=== PATIENT | female | born 1990 | race Caucasian/White ===

== ENCOUNTER → 2022-08-04 09:55 | Outpatient (BNVA) | payer MEDICAID, SELFPAY | PROVIDERS: PCP Registered Nurse; Referring Provider Registered Nurse; Visit Provider Internal Medicine Cardiovascular Disease | DX: R00.2 Palpitations (principal) | CPT/HCPCS: 93005; 99202 ==

== ENCOUNTER → 2022-08-17 10:51 | Outpatient (REF) | payer MEDICAID, SELFPAY ==
--- NOTE | 2022-08-17 10:54 | HM_ITS ---
Cardiac event monitor Indication: Palpitations Technique: Patient was hooked up to cardiac event monitor on 08/17/2022 for total duration of 30 days. Compliance rate was 86.2%. Quality of tracing was adequate. Findings: Baseline rhythm is predominantly sinus rhythm with heart rate varying between 60 and 100 beats per minute 85% of time. No significant sinus tachycardia sinus bradycardia noted. No significant pauses noted. Rare isolated PACs and PVCs noted. No prolonged arrhythmias such as SVT or ventricular tachycardia noted. Patient reported 3 events with irregular heartbeat or flutter that correlated with isolated PVCs. Patient reported 1 symptom of palpitations skipped heartbeat that correlated with PVCs. Patient recorded to other events without any reporting symptoms that correlated with sinus rhythm. Conclusion: 1. Baseline was normal sinus rhythm with no pauses 2. Rare PACs and PVCs noted 3. Patient reported symptoms of irregular heartbeat and/or skipped heartbeats correlated with isolated PVCs MTDD
--- NOTE | 2022-08-17 10:54 | CA_ITS ---
Transthoracic Echocardiogram Patient (Last, First, Middle): Beverly Shields, Gender: Female Date of : 1990 Age: 31 Procedure Date: 08/17/2022 Procedure Type: Transthoracic Echocardiogram Location: OP Height: 165.1 cm Weight: 81.65 kg BSA: 1.89 m2 Heart Rate: 66 bpm BP: 126 / 72 mmHg Mortgage Closing Clerk: HESHAM Referring MD: Alexander Gage MD Symptoms: R00.2 - Palpitations Study Quality: Adequate ECG Rhythm: Sinus Conclusions: - The left ventricular systolic function is normal. The calculated ejection fraction is 60% by biplane method. - No obvious valvular pathology seen on this study. Findings Left Ventricle Normal left ventricular cavity size. There is normal left ventricular wall thickness. The left ventricular systolic function is normal. The calculated ejection fraction is 60% by biplane method. There is no evidence of regional wall motion abnormalities. Diastolic function is normal for age. LV peak GLS -22.9%. Right Ventricle Normal right ventricular cavity size and systolic function. Atria Both atria are normal in size. Aortic Valve There is a normal trileaflet aortic valve. There is no aortic valve stenosis. There is no aortic valve regurgitation. Mitral Valve The mitral valve appears normal. There is trace mitral valve regurgitation. There is no mitral valve stenosis. Pulmonic Valve The pulmonic valve is likely normal. Tricuspid Valve Normal tricuspid valve structure. There is no tricuspid valve regurgitation. There is no evidence of pulmonary hypertension. Great Vessels The asc aorta is normal in size. Venous The inferior vena cava is normal in size and collapses greater than 50% with inspiration. Pericardium/Pleural There is a trivial pericardial effusion. Prior Study Comparison No prior study available for comparison. Recommendations, Care & Conclusions No obvious valvular pathology seen on this study. Measurements 2D Linear Measurements IVSd: 0.64 0.6-0.9/0.6-1.0 cm LVIDd: 5.02 3.9-5.3/4.2-5.9 cm LVIDd Index: 2.66 2.4-3.2/2.2-3.1 cm/m2 LVIDs: 3.17 2.0-3.6 cm LVPWd: 0.81 0.7-1.1 cm LA Diam: 3.10 2.7-3.8/3.0-4.0 cm LAIDs Index: 1.64 1.5-2.3 cm/m2 LV Mass: 149.98 67-162/88-224 g LV Mass Index: 79.35 43-95/49-115 g/m2 LVOT Diam: 2.30 3.0+(-)1.3 cm 2D Systolic Function EF 4C: 58.40 >55% EF 2C: 67.10 >55% EF BiP: 60.00 >55% Mitral Valve MV Pk E: 0.90 MV PK A: 0.39 MV Decel Time: 190.00 E/A: 2.30 E'Lateral: 14.10 E'Medial: 10.30 E/E' Med: 8.80 E/E' Lat: 6.40 PHT: 56.00 MVA PHT: 3.93 Decel Tyrrell: 4.75 Aortic Valve AoV Pk Lazarus: 1.23 AoV Pk Grad: 6.00 SYMONE: 3.06 LVOT LVOT Pk Lazarus: 0.91 LVOT Mn Lazarus: 0.58 LVOT VTI: 0.20 LVOT Pk Grad: 3.00 LVOT Mn Grad: 2.00 LVOT Diam: 2.30 LVOT Area: 4.15 Diastolic Function MV Pk E: 0.90 MV Pk A: 0.39 E/A: 2.30 E'Medial: 10.30 E/E' Med: 8.80 E' Laterial: 14.10 E/E' Lat: 6.40 Right Ventricle TAPSE (mm): 31.30 TVS' Lazarus: 16.60 Tricuspid Valve TR Pk Lazarus: 1.66 TR Pk Grad: 11.00 RA Press: 3.00 RVSP: 14.00 Great Vessels Aorta Sinus of Valsalva: 3.00 2.0-3.5 cm Ao Asc: 2.60 2.1-3.4 cm Ao Arch: 2.50 Ao Desc: 1.40 Pulmonary Veins Pulm Vein S/D 1.30 Pulmonary Valve PV Pk Lazarus: 0.90 Peak PV Grad: 3.00 Updated in Other Vendor System with Status of Final Genaro Mcgovern MD electronically signed on 08/19/2022 11:37:26 AM with status of Final
== END ==
LOC: HO.CARD 10:51
PROVIDERS: PCP Registered Nurse; Visit Provider Internal Medicine Cardiovascular Disease
DX: R00.2 Palpitations (principal)
CPT/HCPCS: 93270; 93306; 93356

== ENCOUNTER 2022-10-21 13:12 | Outpatient (AMB) | payer MEDICAID, SELFPAY ==
--- NOTE | 2022-10-21 13:16 | MHC.OFFVIS ---
Intake Vital Signs 10/21/22 13:18 Height 5 ft 5 in Weight 200 lb 9.93 oz BMI 33.4 BP 110/72 Blood Pressure Location Lt brachial Position Sitting Pulse 72 Intake Visit Reasons: 2 month f/u S/P echo/30 day Intake Note: 2 month follow-up after echo and 30 monitor Lens Examiner Required: No Allergies No Known Allergies Allergy (Unverified 12/13/19 18:42) Medication List - Last Reconciled 10/21/22 by Alexander Gage MD amitriptyline 20 mg PO DAILY ibuprofen 800 mg PO Q8H PRN levonorgestrel-ethinyl estrad 0.1-20 mg-mcg (Vienva) 0 tabs PO sertraline 25 mg PO DAILY HPI HPI Comments History of Present Illness Details Beverly comes for follow-up. When she was wearing the event monitor she was having symptoms of irregular heartbeat and skipped heartbeat that correlated with isolated PVCs. Echocardiogram shows normal structure of the heart. She has not had any significant palpitations or prolonged fast heart rate. She is happy about it. [facility] Family History Father No problems noted. Sister POTS (postural orthostatic tachycardia syndrome) Social History Patient Tobacco Use Status: Never used Tobacco Review of Systems Const Denies chills, Denies fatigue, Denies fever(s), Denies frequent falls, Denies weakness, Denies weight gain and Denies weight loss ENT Denies dizziness Card Denies chest pain, Denies leg edema, Denies lightheadedness, Denies palpitations, Denies dyspnea, Denies dyspnea on exertion, Denies orthopnea and Denies other (loss of consciousness) Resp Denies cough, Denies dyspnea and Denies dyspnea on exertion GI Denies hematochezia and Denies change in stool character Musc Denies abnormal gait, Denies muscle weakness, Denies numbness, Denies radiating pain into limb and Denies tingling Neuro Denies Abnormal speech present, Denies abnormal gait, Denies dizziness, Denies frequent falls, Denies numbness, Denies tingling and Denies weakness Endo Denies fatigue and Denies palpitations Physical Exam Vital Signs: Last Vital Signs Pulse 72 10/21/22 13:18 BP 110/72 10/21/22 13:18 BMI result Body Mass Index 33.4 Const General: cooperative, comfortable, no acute distress, alert, awake and Physically active Nutritional Appearance: overweight Limitations: no limitations Neck Neck: Yes trachea midline, Yes supple and Yes no JVD Resp Effort & Inspection: normal respiratory effort Auscultation: clear to auscultation bilaterally Cardio Jugular venous distension: no JVD Palpation: normal PMI Rate: regular rate Rhythm: regular rhythm Heart sounds: S1 normal heart sound present, S2 normal heart sound present, no click, no gallops, no murmurs and no rubs Neuro Speech: No Abnormal speech present Extrem General: Yes no clubbing, cyanosis or edema Assessment & Plan Assessment & Plan (1) PVC (premature ventricular contraction): Code(s): I49.3 - Ventricular premature depolarization Plan: Symptomatic PVCs, isolated with rare occurrence. Normal structure of the heart. This was discussed with the patient. Benign nature of isolated rare PVCs were discussed with her. Her symptoms have currently resolved. However she also says she had symptoms of rapid heart rate. Unclear as to if these represent SVT or sinus tachycardia. Discussed with her about obtaining EKG sensors that para with her phone to diagnose if she has rapid heart rate with any other different fall arrhythmias. Currently I do not suggest any pharmacotherapy. Advised stress mitigation strategies. Avoidance of stimulants was discussed. Will follow up in the clinic if need be. Thank you for allowing me to partake in her care Coding Level of Care Code Est Pt Level 3 (86665) Diagnoses PVC (premature ventricular contraction) I49.3
[2022-10-21 13:18] VITALS: BP 110/72; PULSE 72; BMI 33.4
== END 2022-10-21 13:44 | disposition home or self-care (01) ==
PROVIDERS: Visit Provider Internal Medicine Cardiovascular Disease
DX: I49.3 Ventricular premature depolarization (principal)
CPT/HCPCS: 99213

== ENCOUNTER → 2022-10-21 13:12 | Outpatient (BNVA) | payer MEDICAID, SELFPAY | PROVIDERS: Visit Provider Internal Medicine Cardiovascular Disease | DX: I49.3 Ventricular premature depolarization (principal) | CPT/HCPCS: 99212 ==

== ENCOUNTER 2024-09-06 14:48 | Outpatient (REF) | payer BC, SELFPAY ==
[2024-09-06 16:15] LABS: MANUAL DIFF FLAG NO
[2024-09-06 16:20] LABS: Basophils Percent Auto 0.2 % (0-2); Eosinophils Absolute Auto 0.1 X10*3/uL (0.0-0.4); Eosinophils Percent Auto 0.9 % (0-4); Hematocrit 33.9 % (37.0-47.0); Hemoglobin 11.3 g/dl (12.0-16.0); Imm Gran Abs Auto 0.01 X10*3/uL (0.00-0.03); Imm Gran Pct Auto 0.2 % (0.0-0.4); Lymphocytes Absolute Auto 1.9 X10*3/uL (1.2-4.9); Lymphocytes Percent Auto 36.8 % (20-40); Mean Corpuscular HGB Conc 33.3 g/dl (31.0-35.0); Mean Platelet Volume 10.3 fL (9.4-12.3); Monocytes Absolute Auto 0.3 X10*3/uL (0.1-1.2); Monocytes Percent Auto 5.3 % (2-11); Neutrophils Percent Auto 56.6 % (45-73); Platelet Count 148 X10*3/uL (160-400); Red Blood Count 3.53 X10*6/uL (4.20-5.50); Red Cell Distribution Width 12.1 % (11.0-16.0); White Blood Count 5.3 X10*3/uL (4.8-10.8)
[2024-09-06 16:34] LABS: Alanine Aminotransferase 11 U/L (0-31); Albumin Level 4.6 g/dL (3.5-5.0); Alkaline Phosphatase 66 U/L (39-117); Anion Gap 13 (12-20); Aspartate Amino Transferase 19 U/L (5-31); Bilirubin Total 0.2 mg/dL (0.0-1.0); Blood Urea Nitrogen 10 mg/dL (9-16); Calcium 8.9 mg/dL (8.4-10.2); Carbon Dioxide 24 mmol/L (22-29); Chloride 106 mmol/L (96-108); Estimated Glomerular Filt Rate > 60; Glucose Random 120 mg/dL (60-115); Potassium 3.7 mmol/L (3.3-5.1); Sodium 139 mmol/L (135-145); Total Protein 7.4 g/dL (6.5-8.0)
[2024-09-06 16:52] LABS: TSH reflex Free T4 1.99 uIU/mL (0.32-4.0); Vitamin D 25-OH Total 27.2 ng/mL (>30)
[2024-09-06 17:08] LABS: Folate 9.3 ng/mL (> or = 4.0); Vitamin B12 < 148 pg/mL (200-900)
--- OUTSIDE RECORDS SUMMARY | 2024-09-06 17:28 | XMS_ITS | Clinical Summary ---
Author Organization [employer] Address [address] [facility] [address] [place] [address] Care Team Providers Care Product Consultant Name Role Phone Renetta Church [facility] Primary Care Provider [phone] Allergies No known active allergies Medications Vienva 0.1-20 MG-MCG tablet Take 1 tablet by mouth in the morning. as directed 01/31/20 22 Active podofilox (Condylox) 0.5 % external solution podofilox 0.5 % topical solution APPLY EXTERNALLY TO THE AFFECTED AREA TWICE DAILY FOR 3 DAYS THEN STOP FOR 4 DAYS. REPEAT 7 DAY CYCLE UNTIL NO VISIBLE WART TISSUE/. MAX OF Active cetirizine (ZyrTEC) 10 MG tabletIndication s:Seasonal allergies Take 1 tablet (10 mg) by mouth in the morning. 30 tablet 2 08/05/19 23 Active fluticasone (Flonase) 50 MCG/ACT nasal sprayIndications :Seasonal allergies Administer 1-2 sprays into each nostril in the morning. Shake gently. Before first use, prime pump. After use, clean tip and replace cap. 16 g 2 08/05/19 23 Active FLUoxetine (PROzac) 10 MG capsule Take 10 mg by mouth Once per day. Active psyllium (Metamucil Smooth Texture) 58.6 % powderIndication s:Constipation, unspecified constipation type Take 5.12 g (3 g of fiber) by mouth 2 times daily. 283 g 11 09/01/19 25 026 Active cyclobenzaprine (Flexeril) 5 MG tabletIndication s:Bruxism Take 1 tablet (5 mg) by mouth if needed in the morning, at noon, and at bedtime for muscle spasms. 30 tablet 2 12/26/19 24 025 Discontinued amitriptyline (Elavil) 10 MG tabletIndication s:Daily headache TAKE 2 TABLETS(20 MG) BY MOUTH AT BEDTIME 60 tablet 11 07/26/19 25 025 Discontinued Active Problems Problem Noted Date Diagnosed Date Anxiety 06/17/2023 Assessment & Plan (06/20/2023 11:12 AM EDT): On review of chart I saw her PCP note explain the medication changes that where done and that the next step was to add Buspar I will do this and schedule her with PCP for follow up Bruxism 06/17/2023 Assessment & Plan (06/20/2023 11:14 AM EDT): I will also add a muscle relaxer to see if this will help her, extensive counseling about side effect was done including somnolence I explain she can not drive or do activities that requires her concentration while on this medication Palpitations 06/01/2022 Overview (08/04/2022): ?? EKG WNL ?? TSH/CBC pending Assessment & Plan (08/04/2022 10:18 PM EDT): ?? Follow up as scheduled with cardiology ?? ED precautions reviewed Chronic tension-type headache, not intractable 0 06/01/2022 Overview (12/27/2023): Daily frontal headaches since middle school. No aura. No n/v/dizziness. No light/sound sensitivity. Sx improvement with amitriptyline Assessment & Plan (08/04/2022 10:21 PM EDT): Suspect possible underlying allergy component ?? Continue amitriptyline 20mg q. Night ?? Trial daily cetirizine 10mg ?? Trial daily flonase Anxiety and depression 04/20/2022 Overview (12/27/2023): Established with therapist Denies SI or thoughts of self harm Assessment & Plan (08/04/2022 10:14 PM EDT): ?? STOP sertraline (bruxism) ?? START escitalopram 10mg once daily ?? Continue to follow with therapist ?? If bruxism reoccurs will consider adding buspar at follow up Assessment & Plan (06/01/2022 9:41 AM EST): ?? Continue current regimen Healthcare maintenance 04/20/2022 Overview (08/04/2022): [facility]; [facility]x [facility]; colposcopy; last results 1 year ago. Immunizations: Declines flu shot, needs COVID booster. Otherwise up to date Encounters Date Type Department Care Team Description 08/31/2024 2:00 PM EDT Office Visit [facility] [address] [place] [phone] Renetta Church FNP Fatigue, unspecified type (Primary Dx); Constipation, unspecified constipation type; Excessive daytime sleepiness 08/31/2024 Travel 08/30/[address] [facility] [address] [place] [phone] Renetta Church FNP Chart prep 08/30/[address] [facility] [address] [place] [address] Renetta Church FNP Nurse Triage 07/24/[address] [facility] [address] [place] [address] Renetta Church FNP Daily headache from Last 3 Months Immunizations Immunization Administration Dates Next Due Moderna Covid-19 Vaccine 6+ Bivalent 02/13/2022 Pfizer Covid-19 Vaccine 12+ 05/30/2020 Tdap 04/28/2017 Family History Medical History Relation Name Comments postural orthostatic tachycardia Sister Relation Name Status Comments Sister Social History Tobacco Use Types Packs/Day Years Used Date Smoking Tobacco: Never Passive Smoke Exposure: Never Smokeless Tobacco: Never Tobacco Cessation:Counseling Given: Not Answered Alcohol Use Standard Drinks/Week Comments Never 0 (1 standard drink = 0.6 oz pur e alcohol) Depression Answer Date Recorded Patient Health Questionnaire-9 Score 0 12/26/2023 Patient Health Questionnaire-9 Score 0 12/26/2023 Last PHQ-9: Questionnaire Data Not on file 0 12/26/2023 Housing Stability Answer Date Recorded What is your housing situation today? I have romero suazo 12/26/[address] you li ve. Do you have problems with any of the following? None of the above 12/26/2023 Food Insecurity Answer Date Recorded Within the past 12 months, y ou worried that your food would run out before you got money to buy more: Never True 12/26/2023 Within the past 12 months,th e food you bought just didn't last and you didn't have enough money to get more: Never True Transportation Answer Date Recorded In the past 12 months, has l ack of transportation kept you from medical appts, meetings, work or from getting things needed for daily living? No 12/26/2023 Utilities Answer Date Recorded In the past 12 months, has t he electric, gas, oil or water company threatened to shut off services in your home? No 12/26/2023 Depression Answer Date Recorded Patient Health Questionnaire-2 Score 0 12/26/2023 Internet Access Answer Date Recorded Internet Access Q1 Yes 12/26/2023 Internet Access Q2 Not on file 12/26/2023 Comments Unknown Sex and Gender Information Value Date Recorded Sex Assigned at Female 01/25/2022 10:38 AM EDT Legal Sex Female 10:38 AM EDT Gender Identity Female 01/25/2022 10:38 AM EDT Sexual Orientation Straight 01/25/2022 10 :38 AM EDT Last Filed Vital Signs Vital Sign Reading Time Taken Comments Blood Pressure 112/72 08/31/2024 2:00 PM EDT Pulse 78 08/31/2024 2:00 PM EDT Temperature 36.9 ??C (98.5 ??F) 08/31/2024 2:00 PM ED T Respiratory Rate 18 08/31/2024 2:00 PM EDT Oxygen Saturation 99% 12/26/2023 2:12 PM EDT Inhaled Oxygen Concentration - - Weight 83.6 kg (184 lb 6.4 oz) 08/31/2024 2:00 P M EDT Height 165.1 cm (5' 5 ) 08/31/2024 2:00 PM EDT Body Mass Index 30.69 08/31/2024 2:00 PM EDT Plan of Treatment Health Maintenance Due Date Last Done Comments Disability Screening 1992 Alcohol/Substance Use Screening 2004 Family Planning (PISQ) 11/23/2007 Pap Smear 2013 Cervical Cancer Screening 2022 HPV/Cotest 2022 COVID-19 Vaccine (3 - 2023-2 5 season) 2023 02/13/2022, 05/30/2020 Influenza Vaccine (Season Ended) 2024 Depression Screening 12/25/2024 12/26/2023, 12/26/2023 SDOH Screening 12/25/2024 12/26/2023 Tobacco Screening 08/31/2025 08/31/2024 DTaP/Tdap/Td Vaccines (2 - T d or Tdap) 04/28/2027 04/28/2017 Zoster Vaccines (1 of 2) 2042 RSV Patients and Patients Aged 60 years or older (1 - 1-dose 75+ series) 11/23/2067 HIV Screening Completed 04/20/2022 Hepatitis C Screening Completed 04/20/2022 HIB Vaccines Aged Out No longer eligi ble based on patient's age to complete this topic HPV Vaccines Aged Out No longer eligi ble based on patient's age to complete this topic Hepatitis A Vaccines Aged Out No long er eligible based on patient's age to complete this topic Hepatitis B Vaccines Discontinued IPV Vaccines Aged Out No longer eligi ble based on patient's age to complete this topic Meningococcal B Vaccine Aged Out No l onger eligible based on patient's age to complete this topic Meningococcal Vaccine Aged Out No maria isabel isai eligible based on patient's age to complete this topic Pneumococcal Vaccine: Pediatrics (0 to 5 Years) and At-Risk Patients (6 to 49) Years) Aged Out No longer eligible based on patient's age to complete this topic RSV under 20 months Aged Out No longe r eligible based on patient's age to complete this topic Rotavirus Vaccines Aged Out No longer eligible based on patient's age to complete this topic Procedures Procedure Name Priority Date/Time Associated Diagnosis Comments VITAMIN B12/FOLATE, SERUM PANEL Routine 09/06/2024 2:52 PM EDT Fatigue, unspecified type VITAMIN D,25-OH,TOTAL,IA Routine 09/06/2024 2:52 PM EDT Fatigue, unspecified type TSH W/REFLEX TO FT4 Routine 09/06/2024 2 :52 PM EDT Fatigue, unspecified type CBC WITH AUTO DIFFERENTIAL Routine 09/06/2024 2:52 PM EDT Fatigue, unspecified type COMPREHENSIVE METABOLIC PANEL Routine 09/06/2024 2:52 PM EDT Fatigue, unspecified type HEPATITIS C AB W/REFL TO HCV RNA, QN, PCR Routine 04/20/2022 9:48 AM EST Healthcare maintenance HIV 1/2 ANTIGEN/ANTIBODY, FOURTH GENERATION W/RFL Routine 04/20/2022 9:48 AM EST Healthcare maintenance from Last 3 Months or Most Recently Relevant to Health Maintenance Results * (ABNORMAL) Vitamin D, 25-Hydroxy, Total, Immunoassay (09/06/2024 2:52 PM EDT) Vitamin D 25-OH Total 27.2(L) >30 ng/mL [facility] Comment: Health Based Reference Values*< 20 ??ng/mL ??[id number] ng/mL ??Insufficient> 30 ??ng/mL ??Sufficient*Marissa LYNN. N Engl J Med. 2007;357:266-280There is no well-established upper level of normal vitamin Dlevels. Some laboratories use 50 ng/mL as an upper limit ofnormal. However, toxicity is patient-dependent and may occurat any level. Careful correlation with the patient'spresentation is necessary and, if there is concern forvitamin D toxicity, treatment should be consideredirrespective of the serum level.Care must be taken in interpreting Vitamin D results fromdifferent laboratories and methodologies. ??Published datademonstrated that results from patients undergoinghemodialysis may show a negative bias when tested withvarious automated 25-OH vitamin D assays when compared toLC- MS/MS.When testing samples from patients whose predominant form ofVitamin D is Vitamin D2, such as patients receiving VitaminD2 supplementation, results that are subtherapeutic shouldbe confirmed with another method such as LC-MS/MS. Blood Venous blood specimen / Unknown 09/06/2024 2:52 PM EDT 09/06/2024 4:08 PM EDT [facility] LAB BLOOD ORDERABLES Final Re sult Performing Organization Address [facility] Co de Phone Number [facility] [address] [place] [phone] * (ABNORMAL) Vitamin B12/Folate, Serum Panel (09/06/2024 2:52 PM EDT) Vitamin B12 <148(L) 200 - 900 pg/mL [facility] Comment:NORMAL 200-900 PG/ML INDETERMINATE 160-199 PG/ML DEFICIENT < 160 PG/ML Folate 9.3 > or = 4.0 ng/mL [facility] Comment:Reference Values:> o r = 4.0 ng/mL< 4.0 ng/mL suggests folate deficiency Methotrexate, aminopterin and folinic acid(leucovorin) are chemotherapeutic agents whose molecularstructures are similar to folate; therefore, the Architectfolate assay cannot be used for patients using these drugs. Blood Venous blood specimen / Unknown 09/06/2024 2:52 PM EDT 09/06/2024 4:08 PM EDT [facility] LAB BLOOD ORDERABLES Final Re sult Performing Organization Address [facility] Co de Phone Number [facility] [address] [place] [phone] * TSH W/Reflex to FT4 (09/06/2024 2:52 PM EDT) TSH reflex Free T4 1.99 0.32 - 4.0 uIU/mL [facility] Blood Venous blood specimen / Unknown 09/06/2024 2:52 PM EDT 09/06/2024 4:08 PM EDT [facility] LAB BLOOD ORDERABLES Final Re sult [facility] [address] [place] [phone] * (ABNORMAL) CBC auto differential (09/06/2024 2:52 PM EDT) White Blood Count 5.3 4.8 - 10.8 X10*3/uL [facility] Red Blood Count 3.53(L) 4.20 - 5.50 X10*6/uL [facility] Hemoglobin 11.3(L) 12.0 - 16.0 g/dl [facility] Hematocrit 33.9(L) 37.0 - 47.0 % [facility] Mean Corpuscular Volume 96.0 80.0 - 98.0 fL [facility] Mean Corpuscular Hemoglobin 32.0 27.0 - 33.0 pg [facility] Mean Corpuscular HGB Conc 33.3 31.0 - 35.0 g/dl [facility] Red Cell Distribution Width 12.1 11.0 - 16.0 % [facility] Platelet Count 148(L) 160 - 400 X10*3/uL [facility] Mean Platelet Volume 10.3 9.4 - 12.3 fL [facility] Neutrophils Percent Auto 56.6 45 - 73 % [facility] Imm Gran Pct Auto 0.2 0.0 - 0.4 % [facility] Lymphocytes Percent Auto 36.8 20 - 40 % [facility] Monocytes Percent Auto 5.3 2 - 11 % [facility] Eosinophils Percent Auto 0.9 0 - 4 % [facility] Basophils Percent Auto 0.2 0 - 2 % [facility] NRBC Pct Auto 0.0 0.0 - 0.2 /100WBC [facility] Neutrophils Absolute Auto 3.0 2.0 - 8.3 x10*3/uL [facility] Imm Gran Abs Auto 0.01 0.00 - 0.03 X10*3/uL [facility] Lymphocytes Absolute Auto 1.9 1.2 - 4.9 X10*3/uL [facility] Monocytes Absolute Auto 0.3 0.1 - 1.2 X10*3/uL [facility] Eosinophils Absolute Auto 0.1 0.0 - 0.4 X10*3/uL [facility] Basophils Absolute Auto 0.0 0.0 - 0.2 X10*3/uL [facility] NRBC Abs Auto 0.000 0.0 - 0.012 X10*3/uL [facility] Blood Venous blood specimen / Unknown 09/06/2024 2:52 PM EDT 09/06/2024 4:08 PM EDT [facility] LAB BLOOD ORDERABLES Final Re sult [facility] [address] [place] [phone] * (ABNORMAL) Comprehensive Metabolic Panel (09/06/2024 2:52 PM EDT) Sodium 139 135 - 145 mmol/L [facility] Potassium 3.7 3.3 - 5.1 mmol/L [facility] Chloride 106 96 - 108 mmol/L [facility] Carbon Dioxide 24 22 - 29 mmol/L [facility] Anion Gap 13 12 - 20 [facility] Urea Nitrogen (BUN) 10 9 - 16 mg/dL [facility] Creatinine, Serum 0.65 0.5 - 1.4 mg/dL [facility] Estimated Glomerular Filt Rate >60 [facility] Comment:Chronic Kidney Disea se: Estimated GFR < 60 mL/min/1.70k9Inkdps Kidney Disease: Estimated GFR < 15 mL/min/1.73m2 Glucose 120(H) 60 - 115 mg/dL [facility] Calcium 8.9 8.4 - 10.2 mg/dL [facility] Bilirubin, Total 0.2 0.0 - 1.0 mg/dL [facility] Aspartate Amino Transferase 19 5 - 31 U/L [facility] Alanine Aminotransferase 11 0 - 31 U/L [facility] Total Protein 7.4 6.5 - 8.0 g/dL [facility] Albumin Level 4.6 3.5 - 5.0 g/dL [facility] Alkaline Phosphatase 66 39 - 117 U/L [facility] Blood Venous blood specimen / Unknown 09/06/2024 2:52 PM EDT 09/06/2024 4:08 PM EDT [facility] LAB BLOOD ORDERABLES Final Re sult Performing Organization Address [facility]/ZIP Co de Phone Number [facility] [address] [place] [phone] * Hepatitis C Antibody with Reflex to HCV, RNA, Quantitative, Real-Time PCR (04/20/2022 9:48 AM EST) Hepatitis C Antibody NON-REACT ERIKA NON-REACT ERIKA [facility] [place] [facility] Index 0.06 <1.00 [facility] [place] [facility] Comment: HCV antibody was non-reactive. There is no laboratory evidence of HCV infection. In most cases, no further action is required. However, if recent HCV exposure is suspected, a test for HCV RNA (test code 49051) is suggested. For additional information please refer to http://education.[employer]/faq/VAU86a3 (This link is being provided for informational/ educational purposes only.) Blood Venous blood specimen / Unknown 04/20/2022 9:48 AM EST 04/20/2022 9:48 AM EST Narrative [facility] - 04/21/2022 11:45 PM EST FASTING:NO FASTING: NO [facility] LAB BLOOD ORDERABLES Final Re sult [facility] [address] [place] [address], [facility], [place] [phone] [facility] [place] [facility] [address] [facility], ([address]) [place] [phone] * HIV-1/2 Antigen and Antibodies, Fourth Generation, with Reflexes (04/20/2022 9:48 AM EST) HIV Antigen/Antibody, 4th Generation NON-REAC TIVE NON-REAC TIVE [facility] [place] [facility] Comment: HIV-1 antigen and HIV-1/HIV-2 antibodies were not detected. There is no laboratory evidence of HIV infection. PLEASE NOTE: This information has been disclosed to you from records whose confidentiality may be protected by state law. ??If your state requires such protection, then the state law prohibits you from making any further disclosure of the information without the specific written consent of the person to whom it pertains, or as otherwise permitted by law. A general authorization for the release of medical or other information is NOT sufficient for this purpose. ?? For additional information please refer to http://education.[employer]/faq/QDI799 (This link is being provided for informational/ educational purposes only.) The performance of this assay has not been clinically validated in patients less than 2 years old. Blood Venous blood specimen / Unknown 04/20/2022 9:48 AM EST 04/20/2022 9:48 AM EST Narrative [facility] - 04/21/2022 11:45 PM EST FASTING:NO FASTING: NO [facility] LAB BLOOD ORDERABLES Final Re sult [facility] [address], [place] [phone] [facility] [place] [facility] [address] [facility], ([address]) [place] [phone] from Last 3 Months or Most Recently Relevant to Health Maintenance Insurance [facility] H[employer] Care Teams Product Consultant Relationship Specialty Start Date End Date Renetta Church FNP [address] [place] [phone] PCP - General Family Medicine 04/15/22
== END 2024-09-06 14:49 | disposition home or self-care (01) ==
LOC: HO.HHCL 14:48
PROVIDERS: Visit Provider Registered Nurse
DX: R53.83 Other fatigue (principal)
CPT/HCPCS: 36415; 80053; 82306; 82607; 82746; 84443; 85025

== ENCOUNTER 2024-09-10 15:11 | Outpatient (REF) | payer BC, SELFPAY ==
[2024-09-10 16:23] LABS: Retic HGB Equivalent 34.9 pg (30.0-35.0); Reticulocyte Percent 1.9 % (0.5-1.8); Reticulocytes Absolute 0.062 X10*6/uL (0.026-0.095)
[2024-09-10 16:55] LABS: Ferritin 18 ng/mL (10-122)
[2024-09-12 22:04] LABS: Intrinsic Factor Antibodies Negative (Negative)
== END 2024-09-10 15:12 | disposition home or self-care (01) ==
LOC: HO.HHCL 15:11
PROVIDERS: Visit Provider Registered Nurse
DX: E53.8 Deficiency of other specified B group vitamins (principal)
CPT/HCPCS: 36415; 82728; 85045; 86340

== ENCOUNTER 2025-01-29 06:15 | Outpatient (REF) | payer BC, SELFPAY ==
--- OUTSIDE RECORDS SUMMARY | 2025-01-29 06:20 | XMS_ITS | Clinical Summary ---
Author Organization [employer] Address [address] [facility] [address] [place] [address] Care Team Providers Care Broadcast Program Director Name Role Phone Renetta Church [facility] Primary Care Provider [phone] Allergies No known active allergies Medications Vienva [...] cap. 16 g 2 08/05/19 23 Active psyllium (Metamucil Smooth Texture) 58.6 % powderIndication s:Constipation, unspecified constipation type Take 5.12 g (3 g of fiber) by mouth 2 times daily. 283 g 09/01/19 25 026 Active cyanocobalamin (Vitamin B-12) 1000 MCG tabletIndication s:B12 deficiency Take 1 tablet (1,000 mcg) by mouth Once per day. 30 tablet 09/08/19 25 026 Active ferrous gluconate (Fergon) 324 (38 Fe) MG tablet Take 1 tablet (324 mg) by mouth with breakfast. 90 tablet 3 09/20/19 25 026 Active cholecalciferol VITAMIN D (Vitamin D-3) 50 MCG (1999 UT) capsuleIndicatio ns:Vitamin D deficiency TAKE 1 CAPSULE BY MOUTH EVERY DAY 30 capsule 3 01/17/20 25 Active lisdexamfetamine (Vyvanse) 30 MG capsule Take 30 mg by mouth Once per day. 05/07/19 25 Active FLUoxetine (PROzac) 20 MG capsuleIndicatio ns:Anxiety and depression Take 1 capsule (20 mg) by mouth Once per day. 30 capsule 11 01/22/20 25 026 Active FLUoxetine (PROzac) 10 MG capsule Take 10 mg by mouth Once per day. 025 Discontinued cholecalciferol (Vitamin D-3) 50 MCG (1999 UT) capsuleIndicatio ns:Vitamin D deficiency Take 1 capsule (50 mcg) by mouth Once per day. 30 capsule 3 09/08/19 25 025 Discontinued FLUoxetine (PROzac) 10 MG capsule Take 10 mg by mouth. 08/17/19 25 025 Discontinued Active Problems Problem Noted Date Diagnosed Date SVT (supraventricular tachycardia) 09/07/2024 Anxiety 06/17/2023 Assessment & Plan (06/20/2023 11:12 [...] on this medication Palpitations 06/01/2022 Overview (08/04/2022): EKG WNL TSH/CBC pending Assessment & Plan (08/04/2022 10:18 PM EDT): Follow up as scheduled with cardiology ED precautions reviewed Chronic tension-type headache, not intractable 0 06/01/2022 Overview (12/27/2023): Daily frontal headaches since middle school. No aura. No n/v/dizziness. No light/sound sensitivity. Sx improvement with amitriptyline Assessment & Plan (08/04/2022 10:21 PM EDT): Suspect possible underlying allergy component Continue amitriptyline 20mg q. Night Trial daily cetirizine 10mg Trial daily flonase Anxiety and depression 04/20/2022 Overview (12/27/2023): Established with therapist Denies SI or thoughts of self harm Assessment & Plan (08/04/2022 10:14 PM EDT): STOP sertraline (bruxism) START escitalopram 10mg once daily Continue to follow with therapist If bruxism reoccurs will consider adding buspar at follow up Assessment & Plan (06/01/2022 9:41 AM EST): Continue current regimen Healthcare maintenance 04/20/2022 Overview (08/04/2022): [facility]x [facility] abnormal [facility]; colposcopy; last results 1 year ago. Immunizations: Declines flu shot, needs COVID booster. Otherwise up to date Encounters Date Type Department Care Team Description 01/21/2025 2:00 PM EDT Office Visit [facility] [address] [place] [id number] [facility] Healthcare maintenance (Primary Dx); Excessive daytime sleepiness; Anxiety and depression; Attention deficit hyperactivity disorder (ADHD), predominantly inattentive type; Mixed hyperlipidemia; B12 deficiency; Anemia, unspecified type; SVT (supraventricular tachycardia) (CMS/HCC); Class 1 obesity due to excess calories without serious comorbidity with body mass index (BMI) of 31.0 to 31.9 in adult; Dietary counseling; Exercise counseling 01/21/2025 Travel 01/18/2025 Telephone [facility] [address] [place] [phone] [place]onRenetta begum FNP chart prep 01/16/2025 Refill [facility] [address] [place], [place] [phone] Renetta Church FNP Vitamin D deficiency 01/14/2025 Patient Outreach [facility] [address] [place], [place] [phone] LynnetteRenetta begum FNP Pre-visit Planning (SDOH negative. Tobacco screening negative. ) 11/13/2024 Telephone [facility] [address] [place], [place] [phone] FultonRenetta FNP oct recall from Last 3 Months Immunizations Immunization Administration [...] Answer Date Recorded Patient Health Questionnaire-9 Score 6 01/21/2025 Patient Health Questionnaire-9 Score 6 01/21/2025 Last PHQ-9: Questionnaire Data Not on file 1 Housing Stability Answer Date Recorded What is your housing situation today? I have romero suazo 01/14/[address] you li ve. Do you have problems with any of the following? None of the above 01/14/2025 Food Insecurity Answer Date Recorded Within the past 12 months, y ou worried that your food would run out before you got money to buy more: Never True 01/14/2025 Within the past 12 months,th e food you bought just didn't last and you didn't have enough money to get more: Never True Transportation Answer Date Recorded In the past 12 months, has l ack of transportation kept you from medical appts, meetings, work or from getting things needed for daily living? No 01/14/2025 Utilities Answer Date Recorded In the past 12 months, has t he electric, gas, oil or water Punctil threatened to shut off services in your home? No 01/14/2025 Depression Answer Date Recorded Patient Health Questionnaire-2 Score 2 01/21/2025 Internet Access Answer Date Recorded Internet Access Q1 Yes 01/14/2025 Internet Access Q2 Not on file 01/14/2025 Comments Unknown Sex and Gender Information Value Date Recorded Sex Assigned at Female 01/25/2022 10:38 AM EDT Legal Sex Female 10:38 AM EDT Gender Identity Female 01/25/2022 10:38 AM EDT Sexual Orientation Straight 01/25/2022 10 :38 AM EDT Last Filed Vital Signs Vital Sign Reading Time Taken Comments Blood Pressure 120/80 01/21/2025 2:18 PM EDT Pulse 78 01/21/2025 2:18 PM EDT Temperature 36.6 C (97.8 F) 01/21/2025 2:18 PM EDT Respiratory Rate 18 01/21/2025 2:18 PM EDT Oxygen Saturation 99% 12/26/2023 2:12 PM EDT Inhaled Oxygen Concentration - - Weight 84.9 kg (187 lb 3.2 oz) 01/21/2025 2:18 P M EDT Height 165.1 cm (5' 5 ) 01/21/2025 2:18 PM EDT Body Mass Index 31.15 01/21/2025 2:18 PM EDT Plan of Treatment Health Maintenance Due Date Last Done Comments Disability Screening 1992 Alcohol/Substance Use Screening 2004 Family Planning (PISQ) 11/23/2007 HPV Vaccines (1 - 3-dose series) 11/23/2007 Pap Smear 2013 Cervical Cancer Screening 2022 HPV/Cotest 2022 COVID-19 Vaccine (3 - 2024-2 6 season) 2024 02/13/2022, 05/30/2020 Influenza Vaccine (#1) 2024 SDOH Screening 01/14/2026 01/14/2025 Depression Screening 01/21/2026 01/21/2025, 01/21/2025 Tobacco Screening 01/24/2026 01/24/2025 Lipid Panel 04/20/2027 04/20/2022 DTaP/Tdap/Td Vaccines (2 - T d or [...] Years) and At-Risk Patients (6 to 49) Years Aged Out No longer eligible based on patient's age to complete this topic RSV under 20 months Aged Out No longe r eligible based on patient's age to complete this topic Rotavirus Vaccines Aged Out No longer eligible based on patient's age to complete this topic Procedures Procedure Name Priority Date/Time Associated Diagnosis Comments HEPATITIS C AB W/REFL TO HCV RNA, QN, PCR Routine 04/20/2022 9:48 AM EST Healthcare maintenance HIV 1/2 ANTIGEN/ANTIBODY, FOURTH GENERATION W/RFL Routine 04/20/2022 9:48 AM EST Healthcare maintenance LIPID PANEL, STANDARD Routine 04/20/2022 9:48 AM EST Healthcare maintenance from Last 3 Months or Most Recently Relevant to Health Maintenance Results * Hepatitis C Antibody with Reflex to HCV, RNA, Quantitative, Real-Time PCR (04/20/2022 9:48 AM EST) Hepatitis C Antibody NON-REACT ERIKA NON-REACT ERIKA [facility] Schedulicity Index 0.06 <1.00 [facility] Comment: HCV antibody was non-reactive. There is no laboratory evidence of HCV infection. In most cases, no further action is required. However, if recent HCV exposure is suspected, a test for HCV RNA (test code 61033) is suggested. For additional information please refer to http://[employer]/faq/RDN16l0 (This link is being provided for informational/ educational purposes only.) Blood Venous blood specimen / Unknown 04/20/2022 9:48 AM EST 04/20/2022 9:48 AM EST Narrative [facility] - 04/21/2022 11:45 PM EST FASTING:NO FASTING: NO [facility] LAB BLOOD ORDERABLES Final Re sult [facility] [address] [facility], [place] [address] [facility] [address] [facility], ([address]) [place] [address] * HIV-1/2 Antigen and Antibodies, Fourth Generation, with Reflexes (04/20/2022 9:48 AM EST) [facility] HIV Antigen/Antibody, 4th Generation NON-REAC TIVE NON-REAC TIVE [facility] Comment: HIV-1 antigen and HIV-1/HIV-2 antibodies were not detected. There is no laboratory evidence of HIV infection. PLEASE NOTE: This information has been disclosed to you from records whose confidentiality may be protected by state law. If your state requires such protection, then the state law prohibits you from making any further disclosure of the information without the specific written consent of the person to whom it pertains, or as otherwise permitted by law. A general authorization for the release of medical or other information is NOT sufficient for this purpose. For additional information please refer to http://[employer])/faq/YKH583 (This link is being provided for informational/ educational purposes only.) The performance of this assay has not been clinically validated in patients less than 2 years old. Blood Venous blood specimen / Unknown 04/20/2022 9:48 AM EST 04/20/2022 9:48 AM EST Narrative [facility] - 04/21/2022 11:45 PM EST FASTING:NO FASTING: NO [facility] LAB BLOOD ORDERABLES Final Re sult Performing Organization Address City/[facility]/ZIP Co de Phone Number [facility] [address], [place] [address] [facility] [employer] [address] [facility], ([address]) [place] [address] * (ABNORMAL) Lipid Panel, Standard (04/20/2022 9:48 AM EST) Cholesterol, Total 205(H) <200 mg/dL [facility] HDL Cholesterol 53 > OR = 50 mg/dL [facility] Triglycerides 193(H) <150 mg/dL [facility] LDL Cholesterol 121(H) mg/dL (calc) [facility] Comment: Reference range: <100 Desirable range <100 mg/dL for primary prevention; <70 mg/dL for patients with CHD or diabetic patients with > or = 2 CHD risk factors. LDL-C is now calculated using the Raymond-Parth calculation, which is a validated novel method providing better accuracy than the Friedewald equation in the estimation of LDL-C. Raymond SS et al. LY. 2013;310(19): 5115-2752 (http://education.[employer]ifind/faq/OVH344) Chol/HDLC Ratio 3.9 <5.0 (calc) [facility] Non-HDL Cholesterol 152(H) <130 mg/dL (calc) [facility] Comment: For patients with diabetes plus 1 major ASCVD risk factor, treating to a non-HDL-C goal of <100 mg/dL (LDL-C of <70 mg/dL) is considered a therapeutic option. Blood Venous blood specimen / Unknown 04/20/2022 9:48 AM EST 04/20/2022 9:48 AM EST Narrative [facility] - 04/21/2022 11:45 PM EST FASTING:NO FASTING: NO [facility] LAB BLOOD ORDERABLES Final Re sult Performing Organization Address City/[facility]/ZIP Co de Phone Number [facility] [address], [place] [address] [facility] [address] [facility], ([address]) [place] [address] from Last 3 Months or Most Recently Relevant to Health Maintenance Insurance [facility] H[facility] Care Teams Broadcast Program Director Relationship Specialty Start Date End Date Renetta Church FNP [address] [place] [phone] PCP - General Family Medicine 04/15/22
[2025-01-29 07:41] LABS: Hemoglobin A1C 96.6676 umol/L
[2025-01-29 07:54] LABS: Anion Gap 10 (12-20); Blood Urea Nitrogen 16 mg/dL (9-16); Calcium 8.8 mg/dL (8.4-10.2); Carbon Dioxide 27 mmol/L (22-29); Chloride 106 mmol/L (96-108); Cholesterol 178 mg/dL (<200); Estimated Glomerular Filt Rate > 60; HDL Cholesterol 47 mg/dL (>40); Potassium 3.9 mmol/L (3.3-5.1); Sodium 139 mmol/L (135-145); Triglycerides 139 mg/dL (<150)
[2025-01-29 08:14] LABS: Ferritin 39 ng/mL (10-122)
[2025-01-29 08:16] LABS: Folate 10.5 ng/mL (> or = 4.0); Vitamin B12 277 pg/mL (200-900)
== END 2025-01-29 06:16 | disposition home or self-care (01) ==
LOC: HO.LAB 06:15
PROVIDERS: PCP Registered Nurse; Visit Provider Registered Nurse
DX: I10 Essential (primary) hypertension (principal); D64.9 Anemia, unspecified; E66.811 Obesity, class 1; Z68.31 Body mass index [BMI] 31.0-31.9, adult; E53.8 Deficiency of other specified B group vitamins; Z13.1 Encounter for screening for diabetes mellitus
CPT/HCPCS: 36415; 80048; 80061; 82306; 82607; 82728; 82746; 83036

== ENCOUNTER → 2025-03-20 10:13 | Outpatient (REF) | payer BC, SELFPAY ==
--- OUTSIDE RECORDS SUMMARY | 2025-03-20 10:21 | XMS_ITS | Encounter Summary ---
Author Organization [employer] Address [address] [facility] [address] [place] [address] Care Team Providers Care Vehicle Return Associate Name Role Phone [place] [facility] Primary Care Provider [phone] Encounter Details Date Type Department Care Team (Late st Contact Info) Description 01/30/2025 Results Follow-Up [facility] [address] [place] [address] [place] [facility] [address] [place] [address] Lipid Panel, Standard, Hemoglobin A1c, Basic Metabolic Panel, Additional followed-up results: 3 Social History Tobacco Use Types Packs/Day Years Used Date Smoking Tobacco: Never Passive Smoke Exposure: Never Smokeless Tobacco: Never Alcohol Use Standard Drinks/Week Comments Never 0 [...] Orientation Straight 01/25/2022 10 :38 AM EDT documented as of this encounter Plan of Treatment Upcoming Encounters Date Type Department Care Team (Late st Contact Info) Description 05/02/2025 11:00 AM EST Nutrition [facility] [address] [place] [address] [place] [address] documented as of this encounter Visit Diagnoses Not on filedocumented in this encounter Additional Health Concerns Assessment Noted Time PHQ-9 Depression Total Score: 6 01/22/20 25 2:19 PM EDT documented as of this encounter Care Teams Vehicle Return Associate Relationship Specialty Start Date End Date Renetta Church FNP [address] [place] [address] PCP - General Family Medicine 04/15/22 documented as of this encounter
--- OUTSIDE RECORDS SUMMARY | 2025-03-20 10:21 | XMS_ITS | Clinical Summary ---
Author Organization [employer] Address [address] [facility] [address] [place] [address] Care Team Providers Care Health Education Teacher Name Role Phone Renetta Church [facility] Primary Care Provider [phone] Allergies No known active allergies Medications Vienva [...] MAX OF Active cetirizine (ZyrTEC) 10 MG tabletIndicatio ns:Seasonal allergies Take 1 tablet (10 mg) by mouth in the morning. 30 tablet 2 08/05/19 23 Active fluticasone (Flonase) 50 MCG/ACT nasal sprayIndication s:Seasonal allergies Administer 1-2 sprays into each nostril in the morning. Shake gently. Before first use, prime pump. After use, clean tip and replace cap. 16 g 2 08/05/19 23 Active psyllium (Metamucil Smooth Texture) 58.6 % powderIndicatio ns:Constipation , unspecified constipation type Take 5.12 g (3 g of fiber) by mouth 2 times daily. 283 g 09/01/19 25 026 Active cyanocobalamin (Vitamin B-12) 1000 MCG tabletIndicatio ns:B12 deficiency Take 1 tablet (1,000 mcg) by mouth Once per day. 30 tablet 09/08/19 25 026 Active ferrous gluconate (Fergon) 324 (38 Fe) MG tablet Take 1 tablet (324 mg) by mouth with breakfast. 90 tablet 3 09/20/19 25 026 Active cholecalciferol VITAMIN D (Vitamin D-3) 50 MCG (1999 UT) capsuleIndicati ons:Vitamin D deficiency TAKE 1 CAPSULE BY MOUTH EVERY DAY 30 capsule 3 01/17/20 25 Active FLUoxetine (PROzac) 20 MG capsuleIndicati ons:Anxiety and depression Take 1 capsule (20 mg) by mouth Once per day. 30 capsule 11 01/22/20 25 026 Active lisdexamfetamin e (Vyvanse) 30 MG capsule Take 1 capsule (30 mg) by mouth in the morning. 28 capsule 03/13/20 25 Active lisdexamfetamin e (Vyvanse) 30 MG capsule Take 1 capsule (30 mg) by mouth in the morning. 28 capsule 01/31/20 25 025 Discontinued(R eorder (will not trigger notification to Pharmacy)) Active Problems Problem Noted Date Diagnosed Date [...] Encounters Date Type Department Care Team Description 03/12/2025 Refill [facility] [address] [place] [phone] [place] [facility] 01/30/2025 Results Follow-Up [facility] [address] [place] [phone] [place] [facility] Lipid Panel, Standard, Hemoglobin A1c, Basic Metabolic Panel, Additional followed-up results: 3 01/21/2025 2:00 PM EDT Office Visit [facility] [address] [place] [phone] [place] [facility] Healthcare maintenance (Primary Dx); Excessive daytime sleepiness; Anxiety and depression; Attention deficit hyperactivity disorder (ADHD), predominantly inattentive type; Mixed hyperlipidemia; B12 deficiency; Anemia, unspecified type; SVT (supraventricular tachycardia) (CMS/HCC); Class 1 obesity due to excess calories without serious comorbidity with body mass index (BMI) of 31.0 to 31.9 in adult; Dietary counseling; Exercise counseling 01/21/2025 Travel 01/18/2025 Telephone [facility] [address], [place] [phone] [facility] chart prep 01/16/2025 Refill [facility] [address], [place] [phone] [facility] Vitamin D deficiency 01/14/2025 Patient Outreach [facility] [address] [place], [place] [phone] [facility] Pre-visit Planning (SDOH negative. Tobacco screening negative. ) from Last 3 Months Immunizations Immunization Administration [...] 01/21/2025 2:18 PM EDT Plan of Treatment Upcoming Encounters Date Type Department Care Team (Late st Contact Info) Description 05/02/2025 11:00 AM EST Nutrition [facility] [address] [place] [address] Patrica Braun, RD [address], [place] [phone] Health Maintenance Due Date Last Done Comments Disability Screening 1992 Alcohol/Substance Use Screening 2004 Family Planning (PISQ) 11/23/2007 HPV Vaccines (1 - 3-dose series) 11/23/2007 Pap Smear 2013 Cervical Cancer Screening 2022 HPV/Cotest 2022 COVID-19 Vaccine (2024-2 6 season) 2024 02/13/2022, 05/30/2020 Influenza Vaccine (#1) 2024 SDOH Screening 01/14/2026 01/14/2025 Depression Screening 01/21/2026 01/21/2025, 01/21/2025 Tobacco Screening 01/24/2026 01/24/2025 DTaP/Tdap/Td Vaccines (2 - T d or Tdap) 04/28/2027 04/28/2017 Lipid Panel 01/29/2030 01/29/2025, 04/20/2022 Zoster Vaccines (1 of 2) 2042 RSV [...] Name Priority Date/Time Associated Diagnosis Comments VITAMIN D,25-OH,TOTAL,IA Routine 01/29/2025 6:42 AM EST Class 1 obesity due to excess calories without serious comorbidity with body mass index (BMI) of 31.0 to 31.9 in adult VITAMIN B12/FOLATE, SERUM PANEL Routine 01/29/2025 6:42 AM EST B12 deficiency FERRITIN Routine 01/29/2025 6:42 AM EST Anemia, unspecified type BASIC METABOLIC PANEL Routine 01/29/2025 6:42 AM EST Class 1 obesity due to excess calories without serious comorbidity with body mass index (BMI) of 31.0 to 31.9 in adult HEMOGLOBIN A1C Routine 01/29/2025 6:42 AM EST Class 1 obesity due to excess calories without serious comorbidity with body mass index (BMI) of 31.0 to 31.9 in adult LIPID PANEL, STANDARD Routine 01/29/2025 6:42 AM EST Class 1 obesity due to excess calories without serious comorbidity with body mass index (BMI) of 31.0 to 31.9 in adult HEPATITIS C AB W/REFL TO HCV RNA, QN, PCR Routine 04/20/2022 9:48 AM EST Healthcare maintenance HIV 1/2 ANTIGEN/ANTIBODY, FOURTH GENERATION W/RFL Routine 04/20/2022 9:48 AM EST Healthcare maintenance from Last 3 Months or Most Recently Relevant to Health Maintenance Results * Vitamin D, 25-Hydroxy, Total, Immunoassay (01/29/2025 6:42 AM EST) [facility] Vitamin D 25-OH Total 35.6 >30 ng/mL [facility] Comment: Health Based Reference Values*< 20 ng/mL Tugsefkbd07-69 ng/mL Insufficient> 30 ng/mL Sufficient*Marissa LYNN. N Engl J Med. 2007;[id number]:266-280There is [...] Vitamin D results fromdifferent laboratories and methodologies. Published datademonstrated that results from patients undergoinghemodialysis may show a negative bias when tested withvarious automated 25-OH vitamin D assays when compared toLC-MS/MS.When testing samples from patients whose predominant form ofVitamin D is Vitamin D2, such as patients receiving VitaminD2 supplementation, results that are subtherapeutic shouldbe confirmed with another method such as LC-MS/MS. Blood Venous blood specimen / Unknown 01/29/2025 6:42 AM EST 01/29/2025 7:09 AM EST [facility] LAB BLOOD ORDERABLES Final Re sult Performing Organization Address [facility] de Phone Number [facility] [address] [place] [phone] * Vitamin B12/Folate, Serum Panel (01/29/2025 6:42 AM EST) Vitamin B12 277 200 - 900 pg/mL [facility] Comment:NORMAL 200-900 PG/ML INDETERMINATE 160-199 PG/ML DEFICIENT < 160 PG/ML Folate 10.5 > or = 4.0 ng/mL [facility] Comment:Reference Values:> o r = 4.0 ng/mL< 4.0 ng/mL suggests folate deficiency Methotrexate, aminopterin and folinic acid(leucovorin) are chemotherapeutic agents whose molecularstructures are similar to folate; therefore, the Architectfolate assay cannot be used for patients using these drugs. Blood Venous blood specimen / Unknown 01/29/2025 6:42 AM EST 01/29/2025 7:09 AM EST [facility] LAB BLOOD ORDERABLES Final Re sult Performing Organization Address [facility] de Phone Number [facility] [address] [place] [phone] * Hemoglobin A1c (01/29/2025 6:42 AM EST) Hemoglobin A1c 5.1 <6.0 % [facility] Comment:Hemoglobin A1C Refer ence Range Adults: 4.8 - 6.0 % Non diabetic: < 6.0 % Goal: < 7.0 %Additional Action Suggested: > 8.0 %Note: Hemoglobin A1c results are invalid for patients with abnormal amounts of HbF. Blood transfusions may impact the HbA1c concentration in the patient sample. Estimated Average Glucose 100 mg/dL [facility] Comment:eAG = Estimated ave rage glucose which is %A1C expressed asaverage glucose, using the formula of the M3O-JsyvvkcCcbuhec Glucose study (ADAG), Diabetes Care, Vol.31,#8,2007 Blood Venous blood specimen / Unknown 01/29/2025 6:42 AM EST 01/29/2025 7:09 AM EST [facility] LAB BLOOD ORDERABLES Final Re sult Performing Organization Address [facility] Co de Phone Number [facility] [address] [place] [phone] * Ferritin (01/29/2025 6:42 AM EST) Ferritin 39 10 - 122 ng/mL [facility] Blood Venous blood specimen / Unknown 01/29/2025 6:42 AM EST 01/29/2025 7:09 AM EST [facility] LAB BLOOD ORDERABLES Final Re sult Performing Organization Address [facility] Co de Phone Number [facility] [address] [place] [address] [phone] * (ABNORMAL) Lipid Panel, Standard (01/29/2025 6:42 AM EST) Triglycerides 139 <150 mg/dL [facility] Comment:Desirable Triglyceri de: less than 150 mg/dLBorderline High Triglyceride 150-199 mg/dLHigh Triglyceride: 200-499 mg/dLVery High Triglyceride: greater than or equal to 5OO mg/dL Cholesterol 178 <200 mg/dL [facility] Comment:Desirable Cholestero l: less than 200 mg/dLBorderline High Cholesterol: 200-239 mg/dLHigh Cholesterol: greater than 239 mg/dL LDL Cholesterol Calculated 104(H) <100 mg/dL [facility] Comment:Desirable LDL: less than 100 mg/dLNear Optimal/Above Optimal LDL: 110- 129 mg/dLBorderline High LDL: 130-159 mg/dLHigh LDL: 160-189 mg/dLVery High LDL: greater than or equal to 190 mg/dL HDL Cholesterol 47 >40 mg/dL [facility] Comment:Desirable HDL: great er than 40 mg/dL Note: This HDL assay may give artificially low results in patients with liver disease. Blood Venous blood specimen / Unknown 01/29/2025 6:42 AM EST 01/29/2025 7:09 AM EST [facility] LAB BLOOD ORDERABLES Final Re sult Performing Organization Address City/[facility]/ZIP Co de Phone Number [facility] [address] [place] [phone] * (ABNORMAL) Basic Metabolic Panel (01/29/2025 6:42 AM EST) Sodium 139 135 - 145 mmol/L [facility] Potassium 3.9 3.3 - 5.1 mmol/L [facility] Chloride 106 96 - 108 mmol/L [facility] Carbon Dioxide 27 22 - 29 mmol/L [facility] Anion Gap 10(L) 12 - 20 [facility] Urea Nitrogen (BUN) 16 9 - 16 mg/dL [facility] Creatinine, Serum 0.67 0.5 - 1.4 mg/dL [facility] Estimated Glomerular Filt Rate >60 [facility] Comment:Chronic Kidney Disea se: Estimated GFR < 60 mL/min/1.02n4Xsofmb Kidney Disease: Estimated GFR < 15 mL/min/1.73m2 Glucose 89 60 - 115 mg/dL [facility] Calcium 8.8 8.4 - 10.2 mg/dL [facility] Blood Venous blood specimen / Unknown 01/29/2025 6:42 AM EST 01/29/2025 7:09 AM EST [facility] LAB BLOOD ORDERABLES Final Re sult [facility] [address] [place] [phone] * Hepatitis C Antibody with Reflex to HCV, RNA, Quantitative, Real-Time PCR (04/20/2022 9:48 AM EST) Hepatitis C Antibody NON-REACT ERIKA NON-REACT ERIKA [facility] [place] [facility] Index 0.06 <1.00 [facility] Comment: HCV antibody was non-reactive. There is no laboratory evidence of HCV infection. In most cases, no further action is required. However, if recent HCV exposure is suspected, a test for HCV RNA (test code 40933) is suggested. For additional information please refer to http://education.[employer]/faq/IYQ70u9 (This link is being provided for informational/ educational purposes only.) Blood Venous blood specimen / Unknown 04/20/2022 9:48 AM EST 04/20/2022 9:48 AM EST Narrative [facility] - 04/21/2022 11:45 PM EST FASTING:NO FASTING: NO [facility] BLOOD ORDERABLES Final Re sult [facility] [address] [facility] [address], [facility], [place] [phone] [facility] [place] [facility] [address] [facility] [address], ([address]) [place] [phone] * HIV-1/2 Antigen and Antibodies, Fourth Generation, with Reflexes (04/20/2022 9:48 AM EST) HIV Antigen/Antibody, 4th Generation NON-REAC TIVE NON-REAC TIVE [facility] [place] [facility] Comment: HIV-1 antigen and HIV-1/HIV-2 antibodies were [...] purpose. For additional information please refer to http://education.[employer].com.[employer]/faq/UJX392 (This link is being provided for informational/ educational purposes only.) The performance of this assay has not been clinically validated in patients less than 2 years old. Blood Venous blood specimen / Unknown 04/20/2022 9:48 AM EST 04/20/2022 9:48 AM EST Narrative [facility] - 04/21/2022 11:45 PM EST FASTING:NO FASTING: NO [facility] LAB BLOOD ORDERABLES Final Re sult [facility] [address] [facility] [address], [facility], [place] [address] [employer] [facility] [address] [facility] [address], ([address]) [place] [phone] from Last 3 Months or Most Recently Relevant to Health Maintenance [facility] Care Teams Health Education Teacher Relationship Specialty Start Date End Date Renetta Church, LINEN SORTER [address] [place] [phone] PCP - General Family Medicine 04/15/22
== END ==
LOC: HO.SL 10:13
PROVIDERS: PCP Registered Nurse; Visit Provider Registered Nurse
DX: G47.19 Other hypersomnia (principal)
CPT/HCPCS: 95806

== ENCOUNTER → 2025-03-23 21:00 | Outpatient (BNV) | payer BC, SELFPAY | PROVIDERS: PCP Registered Nurse; Visit Provider Psychiatry & Neurology Neurology | DX: G47.10 Hypersomnia, unspecified (principal) | CPT/HCPCS: 95806 ==